=== PATIENT | female | born 1980 | race Caucasian/White ===

== ENCOUNTER 2019-03-30 11:06 | Emergency (ER) | payer OTHER, MEDICAID ==
[~2019-03-30] VITALS: Ht 157.5 cm; Wt 98.9 kg
[2019-03-30 11:21] VITALS: Ht 157.5 cm; Wt 98.9 kg
[2019-03-30 13:15] VITALS: BP 131/68
== END 2019-03-30 13:35 | disposition home or self-care (01) ==
LOC: ED 11:06
DX: L05.01 Pilonidal cyst with abscess (principal); E11.9 Type 2 diabetes mellitus without complications
CPT/HCPCS: 82962; J0696; J2001

== ENCOUNTER 2019-04-01 06:26 | Emergency (ER) | payer OTHER, MEDICAID ==
[~2019-04-01] VITALS: Ht 157.5 cm; Wt 97.1 kg
[2019-04-01 06:30] VITALS: Ht 157.5 cm; Wt 97.1 kg
[2019-04-01 07:05] VITALS: BP 109/64
== END 2019-04-01 07:05 | disposition home or self-care (01) ==
LOC: ED 06:26
DX: L02.01 Cutaneous abscess of face (principal); E11.9 Type 2 diabetes mellitus without complications